=== PATIENT | female | born 1990 | race Caucasian/White ===

== ENCOUNTER → 2017-02-05 | Outpatient (CLI) | payer OTHER ==
[~2017-02-05] MED LIST: BIRTH CONTROL PILL; TRAMADOL HCL100 M1; [UNRECOGNIZED DRUG - REMARK]
--- NOTE | ~2017-02-05 | CR58 ---
[facility] A Service of [facility] & [facility] RADIOLOGY TEXT RESULTS PATIENT: CORNELIA DUBON LOCATION: [facility] : [birth year] UNIT #: [id number] AGE: [address]: MAKI MCHUGH APRN SEX: F ORDER DR: [id number] [address] [address] [id number] O MR#: [id number] Acc #: [id number] NAME: CORNELIA DUBON : 1990 SEX: F STUDY DATE/TIME: 02/05/2017 13:00 UNIT: [facility] ROOM: STUDY DESCRIPTION: CR Cervical Spine 2 or 3 Views Attending Physician: Maki Mchugh Aprn Referring Physician: Maki Mchugh Aprn Ordering Physician: Maki Mchugh Aprn Primary Care Physician: Maki Mchugh Aprn MEDICAL IMAGING REPORT This report is preliminary unless electronic signature is present. EXAM Cervical spine, 02/05/2017, [facility]. HISTORY 26-year-old female patient with unexplained back pain cervical, thoracic and lumbar locations. Symptoms approximately 7 days. No indicated injury. FINDINGS AP, lateral and open mouth odontoid views demonstrate normal cervical alignment and curvature. Vertebral body heights and disc spaces are preserved. Posterior elements are intact. The odontoid is normal. There is no prevertebral soft tissue swelling. IMPRESSION Negative cervical spine. Dictated by... Luiz Patricia M.D. THIS IS AN ELECTRONICALLY VERIFIED REPORT Luiz Patricia M.D. at 02/05/2017 3:55 PM Rosamaria TD: 02/05/2017 14:42 JOB #: [id number] MEDICAL IMAGING REPORT Page 1 of 1
--- NOTE | ~2017-02-05 | CR181 ---
[facility] A Service of [facility] & [facility] RADIOLOGY TEXT RESULTS PATIENT: CORNELIA DUBON LOCATION: [facility] : [birth year] UNIT #: [id number] AGE: [address]: MAKI MCHUGH APRN SEX: F ORDER DR: [id number] [place] [id number] O MR#: [id number] Acc #: [id number] NAME: CORNELIA DUBON : 1990 SEX: F STUDY DATE/TIME: 02/05/2017 13:00 UNIT: [facility] ROOM: STUDY DESCRIPTION: CR Lumbar Spine 2 or 3 Views Attending Physician: Maki Mchugh Aprn Referring Physician: Maki Mchugh Aprn Ordering Physician: Maki Mchugh Aprn Primary Care Physician: Maki Mchugh Aprn MEDICAL IMAGING REPORT This report is preliminary unless electronic signature is present. EXAM Lumbar spine 3 views 02/05/2017 CLINICAL HISTORY Seven day history back pain. No known injury. FINDINGS There is a lumbar dextroscoliosis and a somewhat exaggerated lordosis. There is no fracture or acute abnormality. There is mild chronic T11 and T12 wedge deformity but again no acute fracture. Dictated by... Geoffrey Serrato M.D. THIS IS AN ELECTRONICALLY VERIFIED REPORT Geoffrey Serrato M.D. at 02/07/2017 7:30 AM TEV/rnr TD: 02/05/2017 16:38 JOB #: [id number] MEDICAL IMAGING REPORT Page 1 of 1
--- NOTE | ~2017-02-05 | CR242 ---
[facility] A Service of [facility] RADIOLOGY TEXT RESULTS PATIENT: CORNELIA DUBON LOCATION: [facility] : [birth year] UNIT #: [id number] AGE: [address]: MAKI MCHUGH APRN SEX: F ORDER DR: [id number] [address] [address] [id number] O MR#: [id number] Acc #: [id number] NAME: CORNELIA DUBON : 1990 SEX: F STUDY DATE/TIME: 02/05/2017 13:00 UNIT: [facility] ROOM: STUDY DESCRIPTION: CR Thoracic Spine 2 Views Attending Physician: Maki Mchugh Aprn Referring Physician: Maki Mchugh Aprn Ordering Physician: Maki Mchugh Aprn Primary Care Physician: Maki Mchugh Aprn MEDICAL IMAGING REPORT This report is preliminary unless electronic signature is present. EXAM Thoracic spine series 4 views, 02/05/2017 COMPARISON None CLINICAL HISTORY 7-day history of pain with no known injury. FINDINGS There is osteopenia and degenerative scoliosis, and there are some mild mid to lower thoracic wedge deformities but chronic in appearance. No compelling evidence of any acute abnormality. Dictated by... Geoffrey Serrato M.D. THIS IS AN ELECTRONICALLY VERIFIED REPORT Geoffrey Serrato M.D. at 02/07/2017 7:30 AM KASIE/daphne TD: 02/05/2017 16:15 JOB #: [id number] MEDICAL IMAGING REPORT Page 1 of 1
== END | disposition home or self-care (01) ==
LOC: SRAD 12:54
DX: M54.9 Dorsalgia, unspecified (principal)
CPT/HCPCS: 72040; 72070; 72100